=== PATIENT | male | born 1990 | race Caucasian/White ===

== ENCOUNTER 2025-10-12 13:51 | Emergency (ER) | payer BC ==
[~2025-10-12] VITALS: Ht 175.2 cm; Wt 113.4 kg
[~2025-10-12 13:51] MED LIST: TOBRADEX 0.1%-0.5 ML OPH
[2025-10-12 14:03] VITALS: BP 173/93
[2025-10-12] MEDS ORDERED: Ondansetron Hydrochloride 4 MG/2 ML VIAL IV ONE (14:15)
[2025-10-12] MEDS ORDERED: SODIUM CHLORIDE 0.9% 1,000 ML IV ONE ×2 (14:15→16:15)
[2025-10-12 14:30] LABS: MEAN CELL VOLUME 88.5 fl (80.0-94.0); MEAN CORPUSCULAR HGB 30.4 pg (27.0-31.0); MEAN PLATELET VOLUME 9.7 fl (9.6-12.3); NUCLEATED RED BLOOD CELL 0.0 % (0.0-0.0); NUCLEATED RED BLOOD CELL 0.0 10*3/uL (0.0-0.0); PLATELET COUNT AUTOMATED 255 10*3/uL (130-400); RED CELL DISTRI WIDTH 11.9 % (0-14.5)
[2025-10-12 14:31] LABS: MANUAL DIFF REFLEX YES
[2025-10-12 14:51] LABS: PLATELET SUFFICIENCY NORMAL (NORMAL)
[2025-10-12 14:52] LABS: BUN 11 mg/dl (9-23); SGPT/ALT 65 U/L (5-49)
[2025-10-12] MEDS ORDERED: HYDROmorphONE Hydrochloride 0.5 MG/0.5 ML SYRINGE IV ONE (18:20)
== END 2025-10-12 19:35 | disposition home or self-care (01) ==
LOC: ED 13:51
DX: K81.9 Cholecystitis, unspecified (principal); R11.10 Vomiting, unspecified